=== PATIENT | male | born 1965 | race Caucasian/White ===

== ENCOUNTER 2017-02-12 15:57 | Emergency (ER) | payer OTHER ==
[2017-02-12 17:37] VITALS: BP 124/69
[2017-02-12] MEDS ORDERED: Albuterol 2.5 MG/3 ML NEB.SOL* (0.083%) INH ONE (17:49)
--- NOTE | 2017-02-12 17:54 | UC ---
Respiratory Complaint HPI - HPI Summary HPI Summary: patient has has 2 week s of cough, chest congestion, worsening over the pst weeks, started after the flu shot. patient is a smoker - History of Current Complaint Chief Complaint: UCRespiratory Stated Complaint: COUGH Time Seen by Provider: 02/12/17 17:40 Hx Obtained From: Patient Onset/Duration: Sudden Onset, Lasting Weeks Timing: Constant Severity Initially: Mild Severity Currently: Moderate Character: Cough: Nonproductive Aggravating Factors: Deep Breaths Alleviating Factors: Nothing Associated Signs And Symptoms: Positive: Dyspnea, Wheezing, URI - Allergies/Home Medications Allergies/Adverse Reactions: Allergies Allergy/AdvReac Type Severity Reaction Status Date / Time No Known Allergies Allergy Verified 09/18/14 10:41 Home Medications: Home Medications ARIPiprazole TAB* [Abilify TAB*] 5 mg PO DAILY 02/12/17 [History Confirmed 03/19] Atorvastatin* [Lipitor*] 80 mg PO 1700 02/12/17 [History Confirmed 02/12/17] Baclofen TAB* [Lioresal TAB*] 10 mg PO TID PRN 02/12/17 [History Confirmed 02/12] Diclofenac Sodium EC TAB* [Voltaren EC TAB*] 25 mg PO BID PRN 02/12/17 [History Confirmed 02/12/17] Saxagliptin HCl [Onglyza] 5 mg PO DAILY 02/12/17 [History Confirmed 02/12/17] Tamsulosin CAP* [Flomax CAP*] 0.4 mg PO DAILY 02/12/17 [History Confirmed ] Topiramate [Topamax 50 mg tab] 50 mg PO DAILY 02/12/17 [History Confirmed ] traZODone TAB* [Desyrel TAB*] 100 mg PO BEDTIME 02/12/17 [History Confirmed 03/19] PMH/Surg Hx/FS Hx/Imm Hx Previously Healthy: Yes - Surgical History Surgical History: Yes Surgery Procedure, Year, and Place: APPENDECTOMY. GALLBLADDER - Family History Known Family History: Positive: Cardiac Disease, Hypertension - Social History Alcohol Use: Rare Substance Use Type: Marijuana Smoking Status (MU): Heavy Every Day Tobacco Smoker Type: Cigarettes Amount Used/How Often: 1/2 ppd Length of Time of Smoking/Using Tobacco: since age 15 Have You Smoked in the Last Year: Yes Review of Systems Constitutional: Fatigue Skin: Negative Eyes: Negative ENT: Sore Throat Respiratory: Shortness Of Breath, Cough Cardiovascular: Negative Gastrointestinal: Negative Genitourinary: Negative Motor: Negative Neurovascular: Negative Musculoskeletal: Negative Neurological: Negative Psychological: Negative Is Patient Immunocompromised?: No All Other Systems Reviewed And Are Negative: Yes Physical Exam Triage Information Reviewed: Yes Appearance: Well-Nourished, Ill-Appearing, Pain Distress Vital Signs: Initial Vital Signs Temp 97.8 F 02/12/17 17:34 Pulse 66 02/12/17 17:34 Resp 14 02/12/17 17:34 BP 124/69 02/12/17 17:34 Pulse Ox 98 02/12/17 17:34 Vital Signs Reviewed: Yes Eye Exam: Normal ENT: Positive: Pharyngeal erythema, Nasal congestion, TMs normal, Tonsillar swelling Dental Exam: Normal Neck exam: Normal Respiratory Exam: Normal Respiratory: Positive: Chest non-tender, No respiratory distress, No accessory muscle use, Decreased breath sounds, Wheezing, Inspiration Cardiovascular Exam: Normal Cardiovascular: Positive: RRR, No Murmur, Pulses Normal Abdominal Exam: Normal Abdomen Description: Positive: Nontender, No Organomegaly, Soft Bowel Sounds: Positive: Present Musculoskeletal Exam: Normal Musculoskeletal: Positive: Strength Intact, ROM Intact, No Edema Neurological Exam: Normal Neurological: Positive: Alert, Muscle Tone Normal Psychological Exam: Normal Skin Exam: Normal UC Diagnostic Evaluation - Laboratory O2 Sat by Pulse Oximetry: 98 Re-Evaluation - Re-Evaluation First Eval Change: Improved - after neb treatment Respiratory Course/Dx - Course Course Of Treatment: hx obtained, exam prescribed, flu swab obtained, albuterol neb given. - Differential Dx/Diagnosis Differential Diagnosis/HQI/PQRI: Asthma, Bronchitis, Influenza, Laryngitis, Sinusitis Provider Diagnoses: bronchitis. tobacco abuse Discharge - Discharge Plan Condition: Stable Disposition: HOME Prescriptions: DOXYcycline CAP(*) [DOXYcycline 100MG CAP(*)] 100 mg PO BID #14 cap predniSONE TAB* [Deltasone TAB*] 40 mg PO DAILY #14 tab Patient Education Materials: Acute Bronchitis (ED) Referrals: Josselin Couch [Primary Care Provider] - Additional Instructions: 1. take the medication as prescribed. 2. get plenty of rest. 3. follow up as needed
[2017-02-12] MEDS ORDERED: Albuterol HFA INHALER* 8 gm MDI INH ONE ×2 (18:10→18:18)
[2017-02-12] MEDS ORDERED: DOXYcycline CAP(*) 100 MG PO ONE (18:11)
== END 2017-02-12 18:57 | disposition home or self-care (01) ==
LOC: UCCORT 15:57
DX: J40 Bronchitis, not specified as acute or chronic (principal); Z90.49 Acquired absence of other specified parts of digestive tract; Z90.89 Acquired absence of other organs; F17.210 Nicotine dependence, cigarettes, uncomplicated
CPT/HCPCS: 87502; 99213; A9270-GY; G0463

== ENCOUNTER 2019-01-09 13:03 | Emergency (ER) | payer OTHER ==
[2019-01-09 13:49] VITALS: BP 131/78
--- NOTE | 2019-01-09 14:09 | UC ---
Hip/Pelvis Pain - HPI Summary HPI Summary: 53-year-old male who has chronic right hip pain as a result of an injury years ago when he was in the . He states that he was at [facility] and had a house door leaning against his truck when the wind blew it and he turned quickly to grab it and heard a snap in his right hip/groin area and had immediate pain. This happened approximately 5 days ago. He has continued to be ambulatory but with increasing pain. He denies any saddle anesthesia. He denies any numbness or tingling in his extremities. He denies any urinary symptoms. - History Of Current Complaint Chief Complaint: UCLowerExtremity Stated Complaint: R HIP PAIN Time Seen by Provider: 01/09/19 13:57 Hx Obtained From: Patient Onset/Duration: Sudden Onset Timing: Constant Severity Initially: Moderate Severity Currently: Moderate Pain Intensity: 9 Character Of Pain: Sharp, Aching Aggravating Factor(s): Movement Alleviating Factor(s): Rest Associated Signs And Symptoms: Positive: Negative - Allergies/Home Medications Allergies/Adverse Reactions: Allergies Allergy/AdvReac Type Severity Reaction Status Date / Time No Known Allergies Allergy Verified 01/09/19 13:49 Home Medications: Home Medications Albuterol HFA INHALER* [Ventolin HFA Inhaler*] 1 puff INH Q4H PRN 01/09/19 [ History Confirmed 01/09/19] Budesonide/Formote 80/4.5(NF) [Symbicort 80/4.5 (NF)] 2 puff INH DAILY 01/09/19 [History Confirmed 01/09/19] DULoxetine DR CAP* [Cymbalta CAP*] 30 mg PO DAILY 01/09/19 [History Confirmed ] PMH/Surg Hx/FS Hx/Imm Hx - Additional Past Medical History Additional PMH: History of chronic back pain and right hip pain as a result of an injury in the years ago. Previously Healthy: Yes Endocrine History: Diabetes Cardiovascular History: Hypertension - Surgical History Surgical History: Yes Surgery Procedure, Year, and Place: APPENDECTOMY. GALLBLADDER - Family History Known Family History: Positive: Cardiac Disease, Hypertension - Social History Occupation: Disabled Lives: With Family Alcohol Use: Rare Substance Use Type: Marijuana Substance Use Comment - Amount & Last Used: medical Smoking Status (MU): Heavy Every Day Tobacco Smoker Type: Cigarettes Amount Used/How Often: 1 ppd Length of Time of Smoking/Using Tobacco: since age 15 Have You Smoked in the Last Year: Yes Review of Systems All Other Systems Reviewed And Are Negative: Yes Genitourinary: Positive: Other - The pain or injury does not involve the testicles or penis. Motor: Positive: Negative Neurovascular: Positive: Negative Musculoskeletal: Positive: Other: - Patient has pain mostly in the right anterior hip/groin area with movement. Neurological: Positive: Negative. Negative: Weakness, Paresthesia, Numbness Psychological: Positive: Negative Is Patient Immunocompromised?: No Physical Exam Triage Information Reviewed: Yes Appearance: Well-Appearing, No Pain Distress, Well-Nourished Vital Signs: Initial Vital Signs Temp 98.6 F 01/09/19 13:42 Pulse 86 01/09/19 13:42 Resp 18 01/09/19 13:42 BP 131/78 01/09/19 13:42 Pulse Ox 98 01/09/19 13:42 Vital Signs Reviewed: Yes Respiratory: Positive: Lungs clear, Normal breath sounds, No respiratory distress, No accessory muscle use Cardiovascular: Positive: RRR, No Murmur, Pulses Normal, Brisk Capillary Refill Abdomen Description: Positive: Nontender, No Organomegaly, Soft. Negative: CVA Tenderness (R), CVA Tenderness (L) Bowel Sounds: Positive: Present Musculoskeletal Exam: Normal Musculoskeletal: Positive: Other: - Good peripheral pulses neuro sensation capillary refill. Negative straight leg raise. Patient has discomfort when flexing his right leg and hip and with some abduction of the right leg however he is able to raise his leg without difficulty. Neurological Exam: Normal Psychological Exam: Normal Skin Exam: Normal Hip Injury Course/Dx - Course Course Of Treatment: Patient was given Toradol 30 mg IM area and also given a prescription for Flexeril 10 mg by mouth 3 times a day over the next few days. He has an appointment with his physician on Monday of next week for his chronic back problems and I advised him to review the present pain with this provider if he has not improved. No alcohol, driving or operating machinery while he is taking the muscle relaxant. - Differential Dx/Diagnosis Provider Diagnosis: Strain of muscle of right groin region Discharge ED - Sign-Out/Discharge Documenting (check all that apply): Patient Departure All imaging exams completed and their final reports reviewed: No Studies - Discharge Plan Condition: Fair Disposition: HOME Prescriptions: Cyclobenzaprine TAB* [Flexeril 10 MG TAB*] 10 mg PO TID PRN 5 Days #15 tab PRN Reason: Pain - Moderate Patient Education Materials: Groin Strain (ED) Referrals: Josselin Couch [Primary Care Provider] - Additional Instructions: May apply heat or ice to the sore area. No drinking alcohol, driving or operating machinery while you're taking the muscle relaxant. He may take Aleve 2 tablets twice a day as needed for pain. Avoid movements that cause pain. May ambulate as pain permits. Follow-up with your orthopedist on Monday as previously scheduled. - Billing Disposition and Condition Condition: FAIR Disposition: Home
[2019-01-09] MEDS ORDERED: Ketorolac INJ* 30 MG/ML 1 ML VIAL IM ONE (14:18)
== END 2019-01-09 14:27 | disposition home or self-care (01) ==
LOC: UCCORT 13:03
DX: S39.011A Strain of muscle, fascia and tendon of abdomen, initial encounter (principal); X58.XXXA Exposure to other specified factors, initial encounter; Y93.89 Activity, other specified; Y92.481 Parking lot as the place of occurrence of the external cause; E11.9 Type 2 diabetes mellitus without complications; I10 Essential (primary) hypertension; F17.210 Nicotine dependence, cigarettes, uncomplicated
CPT/HCPCS: 96372; 99212; G0463; J1885

== ENCOUNTER 2019-11-28 05:41 | Observation (INO) ==
[2019-11-28] MEDS ORDERED: Famotidine IV 10 MG/ML 2 ml VIAL (20 mg) IV ONE (06:00)
[2019-11-28] MEDS ORDERED: Buffered Lidocaine 1% SYRIN 1 ml INTRADERM ONE ×2 (06:00→06:17)
[2019-11-28] MEDS ORDERED: Lactated Ringers 1000 ml BAG 1,000 ML IV SCH (06:00)
[2019-11-28] MEDS ORDERED: Sodium Citrate/Citric Acid LIQ 15 ML UDC PO ONE (06:00)
[2019-11-28] MEDS ORDERED: Sodium Citrate/Citric Acid LIQ 15 ML UDC ONE (06:16)
[2019-11-28] MEDS ORDERED: Famotidine IV 10 MG/ML 2 ml VIAL (20 mg) ONE (06:17)
[2019-11-28] MEDS ORDERED: ceFAZolin 2 GM PREMIX 2 GM/50 ML BAG ONE (06:17)
[2019-11-28] MEDS ORDERED: Propofol 10 mg/ml 100 ML BTL 200 ML ONE (06:51)
[2019-11-28] MEDS ORDERED: Ondansetron 4 mg VIAL 2 MG/ML 2 ml VIAL ONE (06:52)
[2019-11-28] MEDS ORDERED: Metoclopramide 5 MG/ML VIAL (10 mg) ONE (06:52)
[2019-11-28] MEDS ORDERED: fentaNYL 250 mcg/5 ml 50 MCG/ML 5 ml VIAL (250 MCG) ONE (06:52)
[2019-11-28] MEDS ORDERED: Lidocaine 2% PF 5 ML VIAL ONE (06:52)
[2019-11-28] MEDS ORDERED: Ketamine HCL 50 mg/ml 10 ml VIAL (500 MG) ONE (06:52)
[2019-11-28] MEDS ORDERED: Midazolam 5 mg/5 ml VIAL 1 mg/ml 5 ml VIAL (5 mg) ONE (06:52)
[2019-11-28] MEDS ORDERED: Dexamethasone IV 4 MG/ML VIAL 1 ml VIAL ONE (06:52)
[2019-11-28] MEDS ORDERED: Rocuronium 50 mg VIAL 10 mg/ml 5 ml VIAL (50 mg) ONE (06:53)
[2019-11-28] MEDS ORDERED: Remifentanil 2 MG VIAL ONE ×2 (06:53→09:08)
[2019-11-28] MEDS ORDERED: Lidocaine 1% w EPI 1:200,000 SDV 30 ML VIAL ONE (07:07)
[2019-11-28] MEDS ORDERED: Bacitracin INJECTION 50,000 UNITS ONE (07:07)
[2019-11-28] MEDS ORDERED: Artificial Tear OPHTH.OINT 3.5 GM ONE (07:07)
[2019-11-28] MEDS ORDERED: fentaNYL 100 mcg/2 ml 50 MCG/ML VIAL IV PRN (08:18)
[2019-11-28] MEDS ORDERED: diPHENhydraMINE IV 50 MG/ML 1 ml VIAL (BENADRYL) IV PRN (08:18)
[2019-11-28] MEDS ORDERED: Naloxone 0.4 mg VIAL 0.4 mg/ml 1 ml VIAL IV PRN (08:18)
[2019-11-28] MEDS ORDERED: Ondansetron 4 mg VIAL 2 MG/ML 2 ml VIAL IV PRN ×2 (08:18→11:59)
[2019-11-28] MEDS ORDERED: DiMENhydriNATE IV 50 mg/ml 1 ml VIAL IV PUSH PRN (08:18)
[2019-11-28] MEDS ORDERED: Glycopyrrolate IV 0.2 MG/ML 1 ML VIAL ONE (09:05)
[2019-11-28] MEDS ORDERED: EPHEDrine (Pressors) 50 MG/ML VIAL ONE (09:05)
[2019-11-28] MEDS ORDERED: Acetaminophen IV 1 GM/100ML 100 ML ONE (09:46)
[2019-11-28] MEDS ORDERED: Thrombin 5,000 UNITS 1 APPLIC KIT - topical use - TOPICAL ONE (10:44)
[2019-11-28] MEDS ORDERED: Sugammadex 500 MG/5 ML 5 ml VIAL IV PUSH ONE (11:18)
[2019-11-28] MEDS ORDERED: Magnesium Hydroxide LIQ 30 ML UDC PO PRN (11:59)
[2019-11-28] MEDS ORDERED: HYDROcodone/ACETAMIN 5/325 mg TAB PO PRN (11:59)
[2019-11-28] MEDS ORDERED: HYDROmorphone 1 MG/1 ML SYRINGE ONE (12:13)
[2019-11-28] MEDS: HYDROmorphone 1 MG/1 ML SYRINGE IV PRN ×3 (12:16→12:58)
[2019-11-28] MEDS ORDERED: Acetaminophen IV 1 GM/100ML 1,000 MG/100 ML VIAL IVPB ONE (13:00)
[2019-11-28] MEDS ORDERED: Dextrose 50% Syringe 50 ml 25 GM/50 ML SYRINGE IV PUSH PRN (13:11)
[2019-11-28] MEDS ORDERED: Albuterol HFA INHALER 8 gm MDI INH PRN (13:26)
[2019-11-28] MEDS: HYDROcodone/ACETAMIN 5/325 mg TAB PO PRN ×2 (16:18→21:09)
[2019-11-28] MEDS: CMCS:Varenicline 1 mg TAB (NF) PO SCH (21:10)
[2019-11-29] MEDS: HYDROcodone/ACETAMIN 5/325 mg TAB PO PRN ×2 (01:45→07:28)
[2019-11-29 08:03] VITALS: BP 111/62
[2019-11-29] MEDS ORDERED: Mometasone/Formoter 100/5 MDI INH SCH (09:00)
[2019-11-29] MEDS ORDERED: Cholecalciferol (VIT D3) 1,000 unit TAB PO SCH (09:00)
[2019-11-29] MEDS: CMCS:Varenicline 1 mg TAB (NF) PO SCH (09:28)
== END 2019-11-29 09:50 | disposition home or self-care (01) ==
LOC: AA 05:41 → INTOOBSV 05:41 → SSU 13:22
PROVIDERS: ADMIT Neurological Surgery; ATTEND Neurological Surgery

== ENCOUNTER 2020-08-05 06:04 | Inpatient (IN) ==
[~2020-08-05 06:04] MED LIST: Buffered Lidocaine 1% SYRIN 1 ml INTRADERM ONE; Lactated Ringers 1000 ml BAG 1,000 ML IV SCH
[2020-08-05] MEDS ORDERED: ceFAZolin 2 GM PREMIX 2 GM/50 ML BAG ONE (06:21)
[2020-08-05] MEDS ORDERED: Bacitracin INJECTION 50,000 UNITS ONE ×2 (07:02→10:43)
[2020-08-05] MEDS ORDERED: Midazolam 2 mg/2 ml VIAL 1 mg/ml 2 ml VIAL (2 mg) ONE ×3 (07:32→09:31)
[2020-08-05] MEDS ORDERED: fentaNYL 100 mcg/2 ml 50 MCG/ML VIAL ONE ×3 (07:32→12:19)
[2020-08-05] MEDS ORDERED: Lidocaine 2% PF 5 ML VIAL ONE ×2 (07:32→07:56)
[2020-08-05] MEDS ORDERED: Succinylcholine 200 mg VIAL 20 mg/ml 10 ml VIAL (200 mg) ONE (07:56)
[2020-08-05] MEDS ORDERED: Rocuronium 50 mg VIAL 10 mg/ml 5 ml VIAL (50 mg) ONE (07:56)
[2020-08-05] MEDS ORDERED: Dexamethasone IV 4 MG/ML VIAL 1 ml VIAL ONE (07:56)
[2020-08-05] MEDS ORDERED: Propofol 10 MG/ML 20 ML BTL ONE ×3 (07:56→10:01)
[2020-08-05] MEDS ORDERED: Remifentanil 2 MG VIAL ONE (08:15)
[2020-08-05] MEDS ORDERED: Dexmedetomidine 200 mcg/2 ml 2 ml VIAL (200 mcg) ONE (08:48)
[2020-08-05] MEDS ORDERED: EPHEDrine (Pressors) 50 MG/ML VIAL ONE (09:01)
[2020-08-05] MEDS ORDERED: Ondansetron 4 mg VIAL 2 MG/ML 2 ml VIAL IV PRN ×2 (09:27→12:31)
[2020-08-05] MEDS ORDERED: Levalbuterol 0.63MG/3ML NEB UNIT OF USE INH PRN (09:27)
[2020-08-05] MEDS ORDERED: HYDROmorphone 1 MG/1 ML SYRINGE IV PRN (09:27)
[2020-08-05] MEDS ORDERED: Naloxone 0.4 mg VIAL 0.4 mg/ml 1 ml VIAL IV PRN (09:27)
[2020-08-05] MEDS ORDERED: Ondansetron 4 mg VIAL 2 MG/ML 2 ml VIAL ONE (11:06)
[2020-08-05] MEDS: fentaNYL 100 mcg/2 ml 50 MCG/ML VIAL IV PRN ×2 (12:20→12:30)
[2020-08-05] MEDS ORDERED: Magnesium Hydroxide LIQ 30 ML UDC PO PRN (12:31)
[2020-08-05] MEDS ORDERED: HYDROcodone/ACETAMIN 5/325 mg TAB PO PRN (12:31)
[2020-08-05] MEDS: HYDROcodone/ACETAMIN 5/325 mg TAB PO PRN ×2 (13:04→17:11)
[2020-08-05] MEDS ORDERED: Albuterol HFA INHALER 8 gm MDI INH PRN (14:42)
[2020-08-05 19:01] VITALS: BP 130/59
[2020-08-06] MEDS ORDERED: DULoxetine DR 30 mg CAP PO SCH (09:00)
[2020-08-06] MEDS ORDERED: Cholecalciferol (VIT D3) 1,000 unit TAB PO SCH (09:00)
[2020-08-06] MEDS ORDERED: Mometasone/Formoter 100/5 MDI INH SCH (09:00)
[2020-08-06] MEDS ORDERED: EMPAGLIFLOZIN 25 MG PO SCH (09:00)
== END 2020-08-05 19:30 | disposition home or self-care (01) ==
LOC: AA 06:04 → SSU 12:45 → ICU 13:19 → SSU 13:25
PROVIDERS: ADMIT Neurological Surgery; ATTEND Internal Medicine

== ENCOUNTER 2021-02-05 06:52 | Inpatient (IN) ==
[~2021-02-05 06:52] MED LIST changes: +ceFAZolin 2 GM in NS PREMIX 2 GM/100 ML BAG IVPB ONE
[2021-02-05] MEDS ORDERED: Phenylephrine IV 10 MG/ML 1 ml VIAL ONE (07:12)
[2021-02-05] MEDS ORDERED: Remifentanil 2 MG VIAL ONE ×2 (07:12→10:54)
[2021-02-05] MEDS ORDERED: Lidocaine 2% PF 5 ML VIAL ONE (07:16)
[2021-02-05] MEDS ORDERED: Succinylcholine 200 mg VIAL 20 mg/ml 10 ml VIAL (200 mg) ONE (07:30)
[2021-02-05] MEDS ORDERED: Rocuronium 50 mg VIAL 10 mg/ml 5 ml VIAL (50 mg) ONE (07:30)
[2021-02-05] MEDS ORDERED: Bupivacaine 0.5% SDV PF 30ML VIAL ONE (08:08)
[2021-02-05] MEDS ORDERED: ceFAZolin VIAL VIAL ONE ×3 (08:08→15:16)
[2021-02-05] MEDS ORDERED: Propofol 10 mg/ml 100 ML BTL 100 ML ONE ×2 (08:30→12:44)
[2021-02-05] MEDS ORDERED: Midazolam 2 mg/2 ml VIAL 1 mg/ml 2 ml VIAL (2 mg) ONE (08:32)
[2021-02-05] MEDS ORDERED: HYDROmorphone 1 MG/1 ML SYRINGE ONE ×2 (08:33→15:51)
[2021-02-05] MEDS ORDERED: BUPIVACAINE **LIPOSOME/PF 13.3 MG/ML (266MG/ 20ML) VIAL (RESTRICTED) INFIL ONE (09:00)
[2021-02-05] MEDS ORDERED: Acetaminophen IV 1 GM/100ML 100 ML IV ONE (14:06)
[2021-02-05] MEDS ORDERED: Ketamine HCL 50 mg/ml 10 ml VIAL (500 MG) ONE (14:06)
[2021-02-05] MEDS ORDERED: ceFAZolin 2 GM in NS PREMIX 2 GM/100 ML BAG IVPB ONE (14:53)
[2021-02-05] MEDS ORDERED: Naloxone 0.4 mg VIAL 0.4 mg/ml 1 ml VIAL IV PRN (15:03)
[2021-02-05] MEDS ORDERED: HYDROmorphone 1 MG/1 ML SYRINGE IV PRN (15:03)
[2021-02-05] MEDS ORDERED: DiMENhydriNATE IV 50 mg/ml 1 ml VIAL IV PUSH PRN (15:03)
[2021-02-05] MEDS ORDERED: Ondansetron 4 mg VIAL 2 MG/ML 2 ml VIAL IV PRN ×2 (15:03→16:09)
[2021-02-05] MEDS ORDERED: fentaNYL 100 mcg/2 ml 50 MCG/ML VIAL ONE (15:09)
[2021-02-05] MEDS: fentaNYL 100 mcg/2 ml 50 MCG/ML VIAL IV PRN ×4 (15:11→15:53)
[2021-02-05] MEDS ORDERED: HYDROcodone/ACETAMIN 5/325 mg TAB PO PRN ×2 (16:09)
[2021-02-05] MEDS ORDERED: Dextrose 50% Syringe 50 ml 25 GM/50 ML SYRINGE IV PUSH PRN (19:16)
[2021-02-05] MEDS ORDERED: Albuterol HFA INHALER 8 gm MDI INH PRN (19:18)
[2021-02-05] MEDS ORDERED: PTO:Albuterol HFA INHALER 8 gm MDI INH PRN (19:34)
[2021-02-05] MEDS ORDERED: oxyCODONE/Acetamin 5/325 mg TAB PO PRN (20:06)
[2021-02-05] MEDS ORDERED: Magnesium Hydroxide LIQ 30 ML UDC PO PRN (20:17)
[2021-02-05] MEDS: oxyCODONE/Acetamin 5/325 mg TAB PO PRN (20:44)
[2021-02-05] MEDS ORDERED: Senna TAB 8.6 mg TAB PO SCH (21:00)
[2021-02-05] MEDS: PTO:Budesonide/Formote 160/4.5(NF) MDI INH SCH (23:19)
[2021-02-06] MEDS: oxyCODONE/Acetamin 5/325 mg TAB PO PRN ×3 (02:50→13:04)
[2021-02-06] MEDS ORDERED: Budesonide/Formote 80/4.5(NF) MDI INH SCH (09:00)
[2021-02-06] MEDS ORDERED: Cholecalciferol (VIT D3) 1,000 unit TAB PO SCH (09:00)
[2021-02-06] MEDS: PTO:Budesonide/Formote 160/4.5(NF) MDI INH SCH (09:03)
[2021-02-06 11:56] VITALS: BP 112/61
== END 2021-02-06 15:00 | disposition home or self-care (01) | DRG 304 ==
LOC: AA 06:52 → SSU 16:38
PROVIDERS: ADMIT Neurological Surgery; ATTEND Neurological Surgery